=== PATIENT | male | born 1990 | race African-American/Black ===

== ENCOUNTER 2017-06-10 10:46 | Emergency (ER) | payer SELFPAY, BC ==
[2017-06-10] MEDS: diazePAM 5 MG TABLET PO (11:53)
[2017-06-10] MEDS: HYDROcodone/APAP 5/325MG 1 TAB TABLET PO (11:54)
== END 2017-06-10 13:47 | disposition home or self-care (01) ==
LOC: ER 10:46
DX: S16.1XXA Strain of muscle, fascia and tendon at neck level, initial encounter (principal); S00.83XA Contusion of other part of head, initial encounter; M25.562 Pain in left knee; M25.572 Pain in left ankle and joints of left foot; F12.10 Cannabis abuse, uncomplicated; F17.200 Nicotine dependence, unspecified, uncomplicated; Y04.0XXA Assault by unarmed brawl or fight, initial encounter; Y93.89 Activity, other specified; Y92.89 Other specified places as the place of occurrence of the external cause; Y99.8 Other external cause status
CPT/HCPCS: 70450; 70486; 71045; 72125; 73562; 73590; 73610; 99284-25

== ENCOUNTER 2017-09-08 18:39 | Emergency (ER) | payer OTHER | END 2017-09-08 19:27 | disposition home or self-care (01) | LOC: ER 18:39 | DX: S61.412A Laceration without foreign body of left hand, initial encounter (principal); F17.200 Nicotine dependence, unspecified, uncomplicated; F12.10 Cannabis abuse, uncomplicated; X58.XXXA Exposure to other specified factors, initial encounter; Y93.89 Activity, other specified; Y92.89 Other specified places as the place of occurrence of the external cause; Y99.8 Other external cause status | CPT/HCPCS: 99283 ==

== ENCOUNTER 2018-11-02 08:54 | Emergency (ER) | payer OTHER, SELFPAY ==
[~2018-11-02] VITALS: Ht 180.3 cm; Wt 97.5 kg
[~2018-11-02 08:54] MED LIST: CEPH500T PO; CYCL5TAB PO; HYDR-3164 PO; NAPR-682 PO
[2018-11-02] MEDS ORDERED: AZITHROMYCIN 250 MG TABLET. PO ONE (09:30)
[2018-11-02] MEDS ORDERED: cefTRIAXone IM 250 MG VIAL IM ONE (09:30)
[2018-11-02] MEDS ORDERED: METR500T PO (09:36)
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
[2018-11-02 09:59] LABS: BILIRUBIN,URINE NEGATIVE (NEG); CLARITY,URINE CLEAR; COLOR,URINE YELLOW; NITRITE,URINE NEGATIVE (NEG); PROTEIN,URINE NEGATIVE (NEG-TRACE); UROBILINOGEN,URINE 0.2 mg/dL (0.2 mg/dL)
[2018-11-02 10:00] VITALS: BP 137/77
[2018-11-02 10:27] LABS: BACTERIA,URINE FEW /HPF (0-FEW); RBC,URINE 0 /HPF (0-2); SQUAMOUS EPITHELIAL CELL,UR FEW /LPF
== END 2018-11-02 10:02 | disposition home or self-care (01) ==
LOC: ER 08:54
DX: Z20.2 Contact with and (suspected) exposure to infections with a predominantly sexual mode of transmission (principal)
CPT/HCPCS: 81001; 87086; 87491; 87591; 96372; 99284; J0696; Q0144

== ENCOUNTER 2020-04-24 08:07 | Emergency (ER) | payer SELFPAY ==
[~2020-04-24] VITALS: Ht 180.3 cm; Wt 97.0 kg
[~2020-04-24 08:07] MED LIST changes: +METR500T PO
[2020-04-24 08:15] VITALS: BP 179/105
[2020-04-24] MEDS ORDERED: metroNIDAZOLE 500 MG TABLET PO ONE (08:30)
[2020-04-24] MEDS ORDERED: AZITHROMYCIN 250 MG TABLET. PO ONE (08:30)
[2020-04-24] MEDS ORDERED: cefTRIAXone IM 250 MG VIAL IM ONE (08:30)
[2020-04-24 08:55] LABS: BILIRUBIN,URINE NEGATIVE (NEG); CLARITY,URINE CLEAR; COLOR,URINE YELLOW; NITRITE,URINE NEGATIVE (NEG); PROTEIN,URINE NEGATIVE (NEG-TRACE); UROBILINOGEN,URINE 0.2 mg/dL (0.2 mg/dL)
[2020-04-24 09:13] LABS: BACTERIA,URINE FEW /HPF (0-FEW); WBC,URINE 20-40 /HPF (0-4)
[2020-04-24] MEDS ORDERED: CEPH-264 PO (09:26)
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
[2020-04-24] MEDS ORDERED: CEPHALEXIN 250 MG CAPSULE. PO ONE (09:30)
== END 2020-04-24 10:00 | disposition home or self-care (01) ==
LOC: ER 08:07
DX: R36.9 Urethral discharge, unspecified (principal); Z20.2 Contact with and (suspected) exposure to infections with a predominantly sexual mode of transmission; R30.0 Dysuria; I10 Essential (primary) hypertension; F17.200 Nicotine dependence, unspecified, uncomplicated; F10.20 Alcohol dependence, uncomplicated; Y90.9 Presence of alcohol in blood, level not specified
CPT/HCPCS: 81001; 87086; 87491; 87591; 96372; 99283; J0696

== ENCOUNTER 2021-03-08 11:24 | Emergency (ER) | payer BC ==
[~2021-03-08] VITALS: Ht 180.3 cm; Wt 85.1 kg
[~2021-03-08 11:24] MED LIST changes: +CEPH-264 PO
[2021-03-08] MEDS ORDERED: HYDROcodone/APAP 5/325MG 1 TAB TABLET PO ONE (12:00)
[2021-03-08 12:12] VITALS: BP 139/70
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
[2021-03-08 12:43] LABS: BILIRUBIN,URINE NEGATIVE (NEG); CLARITY,URINE CLEAR; COLOR,URINE YELLOW; NITRITE,URINE NEGATIVE (NEG); PROTEIN,URINE NEGATIVE (NEG-TRACE); UROBILINOGEN,URINE 0.2 mg/dL (0.2 mg/dL)
[2021-03-08 12:45] LABS: BACTERIA,URINE 0 /HPF (0-FEW); RBC,URINE OCC /HPF (0-2)
--- NOTE | 2021-03-08 13:09 | RAD ---
EXAM: SCROTAL SONOGRAM WITH DOPPLER. HISTORY: Right testicular pain. COMPARISON: None. FINDINGS: Grayscale and Doppler analysis of the scrotum and contents was performed. The right testicle measures 4.2 x 2.8 x 2.7 cm. The parenchyma is homogeneous without focal lesions. The epididymis is enlarged. There is hyperemia throughout the right testicle and epididymis. There is no nonperfused collection. There is a small hydrocele. The left testicle measures 3.9 x 2.6 x 2.2 cm. The parenchyma is homogeneous without focal lesions. T he epididymis appears normal. Internal flow is normal. There is no hydrocele. IMPRESSION: 1. Right testicular and epididymal hyperemia is consistent with epididymoorchitis. Electronically signed by: Trenton Castle MD (03/08/2021 1:06 PM) [id number]
[2021-03-08] MEDS ORDERED: cefTRIAXone IM 500 MG VIAL. IM ONE (13:45)
[2021-03-08] MEDS ORDERED: DOXY100T PO (13:52)
[2021-03-08] MEDS ORDERED: HYDR-2761 PO ×5 (13:52→14:46)
== END 2021-03-08 14:55 | disposition home or self-care (01) ==
LOC: ER 11:24
DX: N45.3 Epididymo-orchitis (principal); I10 Essential (primary) hypertension; F17.200 Nicotine dependence, unspecified, uncomplicated
CPT/HCPCS: 76870; 81001; 87086; 87491; 87591; 96372; 99284; J0696